=== PATIENT | female | born 1960 | race Caucasian/White ===

== ENCOUNTER → 2022-03-23 15:40 | Outpatient (CLI) | payer MEDICARE, SELFPAY ==
--- NOTE | 2022-03-23 15:43 | DI.RAD.S_ITS ---
PROCEDURE: XR LUMBAR SPINE 2-3V INDICATIONS: R hip pain TECHNIQUE: 3 views of the lumbar spine were acquired. COMPARISON: None. FINDINGS: Bones: 5 [id number] vertebrae are present. There is 5 mm retrolisthesis of L2 on L3 and 6 mm retrolisthesis of L3 on L4. Degenerative endplate changes, loss of disc height and bilateral facet arthrosis throughout lumbar spine is seen more prominent at L4-5 and L5-S1 levels. No vertebral body compression fractures. No suspicious bony lesions. Soft tissues: Overlying bowel gas pattern is normal. No suspicious soft tissue calcifications. IMPRESSION: Grade 1 retrolisthesis of L2 on L3 and L3 on L4. No acute compression fracture. Degenerative disc disease throughout lumbar spine as above. Dictated by: Kp Bowman M.D. on 03/23/2022 at 16:21 Approved by: Kp Bowman M.D. on 03/23/2022 at 16:22
--- NOTE | 2022-03-23 15:43 | DI.RAD.S_ITS ---
PROCEDURE: XR HIP W PEL IF DONE RT 2V INDICATIONS: R hip pain TECHNIQUE: AP pelvis with lateral view(s) of the right hip(s). COMPARISON: None. FINDINGS: Bones: Moderate to severe right hip joint osteoarthritic changes are seen with flattening of right femoral head weight-bearing portion and underlying subcortical mixed radiolucent and sclerotic area concerning for avascular necrosis of femoral head. No fractures or dislocations. Pelvic ring appears intact. No suspicious bony lesions. Soft tissues: The visualized bowel gas pattern is normal. No suspicious soft tissue calcifications. 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 No acute fracture or dislocation. Dictated by: Kp Bowman M.D. on 03/23/2022 at 16:20 Approved by: Kp Bowman M.D. on 03/23/2022 at 16:21
== END ==
PROVIDERS: Referring Provider Physician Assistant; Visit Provider Physician Assistant
DX: M16.11 Unilateral primary osteoarthritis, right hip (principal); M51.36 Other intervertebral disc degeneration, lumbar region; M51.37 Other intervertebral disc degeneration, lumbosacral region; M47.816 Spondylosis without myelopathy or radiculopathy, lumbar region; M47.817 Spondylosis without myelopathy or radiculopathy, lumbosacral region; M25.551 Pain in right hip; M54.50 Low back pain, unspecified
CPT/HCPCS: 72100; 73502

== ENCOUNTER 2022-06-22 08:26 | Emergency (ER) | payer MEDICARE, SELFPAY ==
[2022-06-22 08:34] VITALS: BP 214/99; PULSE 91; O2SAT 99
[2022-06-22 08:35] VITALS: BP 223/103; PULSE 92; O2SAT 99
[2022-06-22 08:37] VITALS: BP 214/99; PULSE 91; O2SAT 99
[2022-06-22 08:39] VITALS: BP 214/99; PULSE 91; RESP 20; TEMP 36.6; O2SAT 99; BMI 37.8
--- NOTE | 2022-06-22 09:09 | ED.EAR ---
HPI - Ear Problem General Chief complaint: Ear Stated complaint: impacted ear Time Seen by Provider: 06/22/22 09:00 Source: patient Mode of arrival: Ambulatory Limitations: no limitations History of Present Illness HPI Narrative: This is a 61-year-old female with complaint of impacted ear on the left and a small amount of ear wax on the right. Patient states she is had this going on for about a month she has been to 2 urgent cares had her ears flushed x2 without any real success and feels like it made things worse. She is used Debrox at home but not actually flushed her ear with saline or water at home. Patient states she is been referred to ENT but is quite a bit of weight. She states it is there is discomfort it makes her feel little bit dizzy. She has not had fevers. She denies other symptoms. She had a cold several weeks ago she thinks that made things worse. She does have chronic right hip pain she had fractured her hip about 4 years ago and is in process of trying to get a hip replacement and is currently living in the area while trying to set that up. Patient has allergies to codeine and cortisone. Related Data Home Medications Medication Instructions Recorded Confirmed Meloxicam PO 03/23/22 03/23/22 Previous Rx's Medication Instructions Recorded cyclobenzaprine 5 mg tablet 5 mg PO BEDTIME PRN muscle spasm 03/23/22 #20 tabs cyclobenzaprine 5 mg tablet 5 mg PO TID PRN muscle spasm #20 04/30/22 tabs ofloxacin 0.3 % eye drops (Ocuflox) 2 drp EYE-LEFT QID 7 days #5 mL 06/22/22 Allergies Allergy/AdvReac Type Severity Reaction Status Date / Time codeine AdvReac Unknown Verified 06/22/22 08:41 cortisone AdvReac Unknown Verified 06/22/22 08:41 seasonal allergies AdvReac Unknown Uncoded 06/22/22 08:41 Review of Systems Review of Systems ROS Unobtainable: All systems reviewed & are unremarkable except as noted in HPI and below Patient History Social History Smoking Status: Current every day smoker Smoking Status: Current every day smoker Exam Narrative Exam Narrative: GEN: well nourished, well appearing female, alert and oriented x 3, patient appears to be in mild distress. HEENT: Atraumatic, pupils are equal round reactive to light, extraocular movements are intact, nares are clear, right TM is clear with no fluid, patient has a scant amount at the 6 o'clock position of dried cerumen but is not obstructing Myoview is less than 10% of the canal, the left TM is not visualized secondary to very dry hard cerumen present on the left side, there is no conjunctival pallor. Throat is clear without any exudates, erythema, tonsillar enlargement or uvular deviation HEART: Regular rate and rhythm without murmur, clicks, rubs. LUNGS:Lungs clear to auscultation, no wheezes, rales, crackles, chest moves symmetrically ABD:bowel sounds normal, soft, non-tender, no guarding, rebound, rigidity, no masses noted, no hepatosplenomegaly :No CVA tenderness MSCL: Non-tender, no muscle atrophy, muscles strength 5/5 upper and lower extremities, full range of motion, normal gait NEURO:CN 2-12 intact, sensation normal SKIN: No rash, erythema or other skin changes. Initial Vital Signs Initial Vital Signs: Vital Signs Pulse Rate 91 H 06/22/22 08:34 Blood Pressure 214/99 H 06/22/22 08:34 Pulse Oximetry 99 06/22/22 08:34 Course Orders Ordered: Discontinued Medications Docusate Sodium (Docusate 100 Mg Capsule) 100 mg PO NOW ONE Stop: 06/22/22 09:18 Last Admin: 06/22/22 10:23 Dose: 100 mg Documented By: [facility] Reevaluation(s) Reevaluation #1: Patient had Colace in affected ear for approximately 20 minutes irrigated without any success. Used ear curette and was able to remove a small amount of wax, patient has some very hard persistent wax but was able to remove enough to visualize the tympanic membrane which appears intact. The canal itself has some irritation it is not narrowed but was covered with antibiotics which also help soften the wax. Time: 11:35 Vital Signs Vital signs: Vital Signs - 8 hr 06/22/22 12:08 Pulse Rate 89 Blood Pressure 182/115 H Pulse Oximetry 100 Oxygen Delivery Method Room Air Medical Decision Making MDM Narrative Medical decision making narrative: This is a 61-year-old female with impacted left cerumen. Patient had completely opacified ear, irrigation made minimal improvement but soften wax and I was able to remove some there is pretty significantly hard wax within the ear. I am now able to visualize the TM at about 50%, there is some persistent hard wax but discussed with patient is very close to the membrane and I do not feel comfortable trying to remove it. Patient plan to use in the ear there is some irritation likely from removal an impaction but was given antibiotic drops which may also help soften the earwax. Return precautions we also discussed irrigating with bulb suction and warm water several times daily along with the Colace to help facilitate. Patient has already setting up ENT follow-up as this happens to her frequently. We did discuss the possibility of Colace stoma although this appears. More to be old wax. Discharge Plan Departure Patient Disposition: Home Clinical Impression: Impacted cerumen of left ear Instructions: Cerumen Impaction Activity Restrictions/Additional Instructions: Please try to follow-up with ENT which you have already tried to set in place. There is possible alternative option for ENT to follow up with included below. Please use Colace capsules, focal whole filled liquid into your left ear lay for 5-20 minutes on the unaffected side and then irrigate with a bulb suction and lukewarm water 3-4 times daily. This may take 1 or 2 days but should start to break down the cerumen and allow it to come out. You can still use Debrox drops but they will not be effective unless you also irrigate afterwards with warm water. Prescription sent to [facility] in [place]. Please return for increasing pain, new swelling of her ear, fevers, vomiting, redness swelling of the face or neck or other new or concerning changes. Prescriptions: New ofloxacin [Ocuflox] 0.3 % drops 2 drp EYE-LEFT QID 7 Days Qty: 5 0RF No Action Meloxicam PO cyclobenzaprine 5 mg tablet 5 mg PO BEDTIME PRN (Reason: muscle spasm) Qty: 20 0RF cyclobenzaprine 5 mg tablet 5 mg PO TID PRN (Reason: muscle spasm) Qty: 20 0RF Referrals: Darryn Donahue MD [Physician] - Miscellaneous,MD Solomon [Primary Care Provider] - Visit Report Forms: Patient Portal/API
[2022-06-22] MEDS: DOCUSATE 100 MG CAPSULE PO (10:23)
[2022-06-22 12:08] VITALS: BP 182/115; PULSE 89; O2SAT 100
== END 2022-06-22 12:09 | disposition home or self-care (01) ==
PROVIDERS: Emergency Provider Emergency Medicine
DX: H61.22 Impacted cerumen, left ear (principal)
CPT/HCPCS: 69209; 99283; 99284